=== PATIENT | female | born 1995 | race Caucasian/White ===

== ENCOUNTER 2020-06-13 07:59 | Emergency (ER) | payer SELFPAY ==
[2020-06-13 08:05] VITALS: BP 120/70
--- NOTE | 2020-06-13 09:41 | ER Document Report ---
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 At the time she did not have pain however later she began having pain in her left neck area. She states that whenever she turns her head to the left causes pain in her neck and she can only turn to a certain extent. She denies any numbness or tingling in her left arm or hand she also denies any prior injury to the neck. She is not taking any medications for the pain and she has not used any topical heat or cold. She went to work today and her employer suggested that she come to the hospital to be checked. - Related Data Allergies/Adverse Reactions: nitrofurantoin [From [employer]] Allergy (Verified 06/13/20 08:14) Past Medical History - Social History Smoking Status: Current Every Day Smoker Chew tobacco use (# tins/day): No Frequency of alcohol use: None Drug Abuse: None Family History: Reviewed & Not Pertinent Patient has homicidal ideation: No Neurological Medical History: Reports: Hx Migraine Past Surgical History: Reports: Hx Oral Surgery, Hx Tonsillectomy Review of Systems - Review of Systems Notes: Constitutional: Negative for fever. HENT: See HPI Eyes: Negative for visual changes. Cardiovascular: Negative for chest pain. Respiratory: Negative for shortness of breath. Gastrointestinal: Negative for abdominal pain, vomiting or diarrhea. Genitourinary: Negative for dysuria. Musculoskeletal: Negative for back pain. Skin: Negative for rash. Neurological: Negative for headaches, weakness or numbness. 10 point ROS negative except as marked above and in HPI. Physical Exam - Vital signs Vitals: Temp Pulse Resp BP Pulse Ox 97.8 F 70 18 120/70 99 06/13/20 08:04 06/13/20 08:04 06/13/20 08:04 06/13/20 08:04 06/13/20 08:04 - Notes Notes: PHYSICAL EXAMINATION: Physical Exam: General: Well-nourished well-developed in no acute distress HEENT: NC/AT, pupils equal round and reactive to light, MM moist,nares clear, oropharynx clear, airway patent Neck: supple, no adenopathy, no masses. Decreased cervical rotation toward the left. Tenderness in the left upper trapezius muscle, no midline tenderness along the cervical spine, good rotation toward the right, flexion and extension of the neck without pain. Lungs: clear, no wheezing, no rales no rhonchi CVS: Regular rate and rhythm no murmur gallop or rub Abdomen: Soft, active, nontender, no masses, no hepatosplenomegaly Ext: No edema, clubbing or cyanosis. Neuro: Alert and responsive, moving all 4 extremities on command, cranial nerves intact, no focal findings Skin: Intact no open lesions, no rash Course - Re-evaluation Re-evalutation: 06/13/20 09:40 I discussed with the patient that her symptoms appear to be related to a muscle pull/strain and does not appear to be a significant injury to the cervical spine. However given a work related injury we will perform a cervical spine x- ray and I recommended anti-inflammatory medications and topical cold to the area. - Vital Signs Vital signs: Temp Pulse Resp BP Pulse Ox 97.8 F 70 18 120/70 99 06/13/20 08:14 06/13/20 08:04 06/13/20 08:04 06/13/20 08:04 06/13/20 08:04 - Diagnostic Test Radiology reviewed: Image reviewed, Reports reviewed Radiology results interpreted by me: 06/13/20 11:18 Cervical spine x-ray: No acute bony injury. Discharge - Discharge Clinical Impression: Strain of cervical portion of trapezius muscle Condition: Good Disposition: HOME, SELF-CARE Instructions: Muscle Strain (OM) Additional Instructions: You were seen in the emergency department today with a neck injury. You may use Tylenol or ibuprofen for pain. You may apply a cold compress to the area of pain to for relief. Please follow-up with your doctor as needed HOME CARE INSTRUCTIONS & INFORMATION: Thank you for choosing us for your medical needs. We hope you're satisfied with the care you received. After you leave, you must properly care for your problem and, at the same time, observe its progress. Any condition can change. Some illnesses can change rapidly over hours or days. If your condition worsens, return to the Emergency Department or see your physician promptly. ABOUT YOUR X-RAYS AND EKG'S: If you had an EKG or X-rays taken, they have been read by the Emergency Physician. The X-rays and EKG's will also be read by a Radiologist or Dance Coach within 24 hours. If discrepancies are noted, you will be notified by telephone. Please be certain the ED has a correct telephone number & address where you can be reached. Also, realize that some fractures or abnormalities do not show up on initial X-rays. If your symptoms continue, see your physician. ABOUT YOUR LABORATORY TEST: If you had laboratory tests, the results have been reviewed by the Emergency Physician. Some test results (for example cultures) may not be available for several days. You will be contacted if any test result shows you need additional treatment. Please be certain the ED has a correct telephone number and address where you can be reached. ABOUT YOUR MEDICATIONS: You will receive instructions on how to take your medicine on the prescription label you receive. Additional information may be provided by the Pharmacy. If you have questions afterwards, call the ED for clarification or further instructions. Some prescribed medications may cause drowsiness. Do not perform tasks such as driving a car or operating machinery without consulting your Pharmacist. If you feel you need a refill of pain medication, your condition will need re-evaluation. Please do not call for a refill of any medication. ABOUT YOUR SIGNATURE: Signature of this document acknowledges to followin. Understanding that you received emergency treatment and that you may be released before al medical problems are known or treated. Please be certain the ED has a correct phone number & address where you can be reached. 2. Acknowledgement that you will arrange for follow-up care as recommended. 3. Authorization for the Emergency Physician to provide information to your follow-up Physician in order to maximize your care. AT ANY TIME, IF YOUR SYMPTOMS CHANGE SIGNIFICANTLY OR WORSEN OR YOU DEVELOP NEW SYMPTOMS, RETURN TO THE EMERGENCY DEPARTMENT IMMEDIATELY FOR RE-EVALUATION. OUR GOAL IS TO PROVIDE EXCELLENT MEDICAL CARE! WE HOPE THAT WE HAVE MET YOUR EXPECTATIONS DURING YOUR EMERGENCY DEPARTMENT VISIT AND THAT YOU FEEL YOU HAVE RECEIVED EXCELLENT CARE! Forms: Return to Work
--- NOTE | 2020-06-13 10:03 | RADIOLOGY REPORT (SQ) ---
EXAM DESCRIPTION: CERV SP 3 VIEW OR LESS IMAGES COMPLETED DATE/TIME: 06/13/2020 9:53 am REASON FOR STUDY: Neck injury COMPARISON: None. NUMBER OF VIEWS: Three views. TECHNIQUE: AP, lateral and odontoid radiographic images acquired of the cervical spine. LIMITATIONS: None. FINDINGS: MINERALIZATION: Normal. ALIGNMENT: There is reversal of the normal lordotic curvature of the cervical spine. There is no torri dence of atlantoaxial dissociation on the odontoid view. VERTEBRAE: The cervical vertebral body heights are preserved. The dens is intact. There is no fract ure. DISCS: The intervertebral disc space heights are preserved. HARDWARE: None in the spine. SOFT TISSUES: No abnormality. OTHER: No other finding. IMPRESSION: No acute osseous abnormality of the cervical spine. TECHNICAL DOCUMENTATION: JOB ID: [id number] [employer]- All Rights Reserved Reading location - IP/workstation name: [email or web address]
== END 2020-06-13 11:27 | disposition home or self-care (01) ==
LOC: ER 07:59
DX: S29.012A Strain of muscle and tendon of back wall of thorax, initial encounter (principal); M54.2 Cervicalgia; X50.0XXA Overexertion from strenuous movement or load, initial encounter; Y93.89 Activity, other specified; Y99.0 Civilian activity done for income or pay; F17.200 Nicotine dependence, unspecified, uncomplicated; Z88.1 Allergy status to other antibiotic agents
CPT/HCPCS: 72040; 99283

== ENCOUNTER 2020-09-12 14:51 | Emergency (ER) | payer SELFPAY ==
[2020-09-12 15:27] VITALS: BP 124/91
--- NOTE | 2020-09-12 16:50 | ER Document Report ---
ED Medical Screen (RME) - General Chief Complaint: Abdominal Pain Stated Complaint: ABDOMINAL PAIN Time Seen by Provider: 09/12/20 16:41 Mode of Arrival: Ambulatory Information source: Patient Notes: 24-year-old female presented to ED for complaint of abdominal/right pelvic pain. She states last menstrual period was 2 weeks ago but is very irregular. She states she does not have any vaginal discharge she has been told she is got a right ovarian cyst. She states she also has a sore throat and headache. Urine and strep test has been sent and she has been ordered blood and transvaginal ultrasound. She is alert oriented respirations regular nonlabored speaking in full sentences. I have greeted and performed a rapid initial assessment of this patient. A comprehensive ED assessment and evaluation of the patient, analysis of test results and completion of medical decision making process will be conducted by an additional ED providers. - Related Data Allergies/Adverse Reactions: nitrofurantoin [From [email or web address]] Allergy (Verified 06/13/20 08:14) Past Medical History Neurological Medical History: Reports: Hx Migraine Past Surgical History: Reports: Hx Oral Surgery, Hx Tonsillectomy Physical Exam - Vital signs Vitals: Temp Pulse Resp BP Pulse Ox 98.6 F 99 20 124/91 H 98 09/12/20 15:23 09/12/20 15:23 09/12/20 15:23 09/12/20 15:23 09/12/20 15:23 Course - Vital Signs Vital signs: Temp Pulse Resp BP Pulse Ox 98.6 F 99 20 124/91 H 98 09/12/20 15:23 09/12/20 15:23 09/12/20 15:23 09/12/20 15:23 09/12/20 15:23
[2020-09-12 17:08] LABS: APPEARANCE,URINE CLEAR; BILIRUBIN,URINE NEGATIVE (NEGATIVE); COLOR,URINE YELLOW; GLUCOSE, URINE NEGATIVE (NEGATIVE); KETONES,URINE NEGATIVE (NEGATIVE); LEUKOCYTE ESTERASE,URINE NEGATIVE (NEGATIVE); NITRITE,URINE NEGATIVE (NEGATIVE); PROTEIN,URINE NEGATIVE (NEGATIVE); URINE SPECIFIC GRAVITY 1.009; UROBILINOGEN,URINE NEGATIVE mg/dL (<2.0)
[2020-09-12 18:11] LABS: ABSOLUTE BASOPHILS # (AUTO) 0.1 10^3/uL (0.0-0.2); ABSOLUTE EOSINOPHILS # (AUTO) 0.1 10^3/uL (0.0-0.6); ABSOLUTE MONOCYTES (AUTO) 0.6 10^3/uL (0.1-1.4); ABSOLUTE NEUT (AUTO) 6.5 10^3/uL (1.7-8.2); BASOPHILS % (AUTO) 0.6 % (0-2); EOSINOPHILS % (AUTO) 0.7 % (0-6); HEMATOCRIT 40.8 % (36.0-47.0); HEMOGLOBIN 14.3 g/dL (12.0-15.5); LYMPHOCYTES % (AUTO) 21.8 % (13-45); MEAN CORPUSCULAR HGB CONC 35.1 g/dL (32.0-36.0); MEAN CORPUSCULAR VOLUME 91 fl (80-97); MONOCYTES % (AUTO) 6.8 % (3-13); PLATELET COUNT 191 10^3/uL (150-450); RED BLOOD COUNT 4.48 10^6/uL (3.72-5.28); RED CELL DISTRIBUTION WIDTH 13.6 % (11.5-14.0); SEGMENTED NEUTROPHILS % (AUTO) 70.1 % (42-78); TOTAL CELLS COUNTED % (AUTO) 100 %; WHITE BLOOD COUNT 9.3 10^3/uL (4.0-10.5)
[2020-09-12 18:35] LABS: ALBUMIN 4.6 g/dL (3.5-5.0); ALKALINE PHOSPHATASE 82 U/L (38-126); ANION GAP 13 (5-19); ASPARTATE AMINO TRANSFERASE 26 U/L (14-36); BILIRUBIN,DIRECT 0.2 mg/dL (0.0-0.4); BILIRUBIN,TOTAL 0.7 mg/dL (0.2-1.3); BLOOD UREA NITROGEN 12 mg/dL (7-20); CALCIUM 9.5 mg/dL (8.4-10.2); CARBON DIOXIDE 18 mmol/L (22-30); CHLORIDE 107 mmol/L (98-107); GLUCOSE 89 mg/dL (75-110); TOTAL PROTEIN 8.2 g/dL (6.3-8.2)
--- NOTE | 2020-09-12 18:58 | RADIOLOGY REPORT (SQ) ---
EXAM DESCRIPTION: U/S NON-OB PELVIS TV W/O DOP IMAGES COMPLETED DATE/TIME: 09/12/2020 5:42 pm REASON FOR STUDY: Right abdominal/pelvic pain history of ovarian cyst COMPARISON: None. TECHNIQUE: Dynamic and static grayscale images acquired of the pelvis via transvaginal approach and recorded on PACS. Additional selected color Doppler and spectral images recorded. LIMITATIONS: None. FINDINGS: UTERUS: Contour normal. No mass. Increased vascularity around the uterus. ENDOMETRIAL STRIPE: No focal or generalized thickening. No masses. CERVIX: 2.3 cm. No nabothian cysts. RIGHT OVARY AND DOPPLER: Normal size. No worrisome masses. Normal arterial vascular flow without evid ence for torsion. LEFT OVARY AND DOPPLER: Normal size. No worrisome masses. Normal arterial vascular flow without evide nce for torsion. FREE FLUID: None noted. OTHER: No other significant finding. MEASUREMENTS: UTERUS: 7 x 4.1 x 3.7 cm. ENDOMETRIAL STRIPE: 13 mm. RIGHT OVARY: 2.6 x 2.1 x 1.5 cm. LEFT OVARY: 2.2 x 1.8 x 1.7 cm. IMPRESSION: Prominent vessels around the uterus. Correlate for pelvic congestion syndrome/ left ova patrick vein syndrome. No other significant finding. TECHNICAL DOCUMENTATION: JOB ID: [id number] 2010 [employer]- All Rights Reserved Rev-01/31 Reading location - IP/workstation name: [email or web address]
== END 2020-09-13 03:25 | disposition left against medical advice (07) ==
LOC: ER 14:51
DX: R10.2 Pelvic and perineal pain (principal); N92.6 Irregular menstruation, unspecified; J02.9 Acute pharyngitis, unspecified; R51.9 Headache, unspecified; Z86.69 Personal history of other diseases of the nervous system and sense organs; Z53.20 Procedure and treatment not carried out because of patient's decision for unspecified reasons
CPT/HCPCS: 36415; 76830; 80053; 81001; 84703; 85025; 87070; 87086; 87088; 87186; 87880; 99281